=== PATIENT | female | born 1985 | race Caucasian/White ===

== ENCOUNTER 2018-09-01 19:22 | Outpatient (CLI) | payer OTHER ==
[~2018-09-01] VITALS: Ht 162.6 cm; Wt 106.4 kg
[~2018-09-01 19:22] MED LIST: FERR-31 PO; PRENAT PO
[2018-09-01 19:27] VITALS: Ht 162.6 cm; Wt 106.4 kg
--- NOTE | 2018-09-01 21:04 | PN ---
Triage Information Date/Time Reason for visit: Uterine contractions Weeks of Gestation Patient is a 33-year-old 5 para 2 at 35 weeks of gestation with estimated date of delivery October 15, 2018 She presents with uterine contractions and rule out labor Patient reports positive movement, denies any vaginal bleeding or leaking fluid /Para 5 para 2 Diabetes: gestational (Gestational diabetes diet-controlled) Diabetes management: diet controlled (GDM A1) Hypertention: none Objective Heart Rate: 140's Heart Rate Comments heart rate tracing category 1 Contractions: 6-10 Minutes Apart Exam Fingertip/posterior/high per nurse Results/Medications Results 24 hrs Laboratory Tests Test 09/01/18 19:41 Bedside Glucose 84 Disposition: Discharge Assessment/Plan kick count instructions were given Labor precautions were given Patient was counseled to increase p.o. hydration Patient instructed to follow-up with her own [employer] [facility] in 1-2 days NATE GARBER MD Sep 01, 2018 21:04
--- NOTE | 2018-09-01 21:09 | TRIAGE ---
OB Triage Datetime Report Generated by CPN: 09/01/2018 21:08 Datetime: 09/01/2018 20:32 Labor Evaluation Frequency: Irregular Monitor Mode: External Duration (sec)2399: 50-90 Quality: Mild Resting Tone [place]: Relaxed Heart Rate FHR Baseline Rate: 125 Monitor Mode: External US Variability: Moderate 6-25 bpm Accelerations: 15X15 Decelerations: None Category: Category I Datetime: 09/01/2018 20:19 Vaginal Exam Dilatation (cms): 0.5 Effacement (%): 50 Station: -3 Exam By: JOVANI RN Membrane Status: Intact Cervix, Consistency: Moderate Datetime: 09/01/2018 20:08 Stage of : OB Triage Datetime: 09/01/2018 20:05 Labor Evaluation Frequency: Irregular Monitor Mode: External Duration (sec)2399: 50-70 Quality: Mild Resting Tone [place]: Relaxed Heart Rate FHR Baseline Rate: 130 Variability: Moderate 6-25 bpm Accelerations: 15X15 Decelerations: None Category: Category I Comments: periods of monitor loss of contact d/t maternal movement, position, _ BMI Pain Assessment Pain Scale: 8 Pain Presence: Intermittent Pain Type: Contraction; Pressure Pain Location: Abdomen; Perineum Pain Relief Measures: Comfort Measures Pain Assessment Comments: pt states contractions feel intense when they come but they are tolerable and it is unbearable. Datetime: 09/01/2018 19:41 Bedside Blood Glucose: 84 Datetime: 09/01/2018 19:38 Assessment Type: Triage Maternal Assessment Level of Consciousness: Fully Conscious DTR's/Clonus: DTRs 2+; No Clonus Headache: Denies Blurred Vision: No Respiratory Effort: Unlabored; Regular Rhythm; Equal Expansion Breath Sounds, Left: Clear and Equal Breath Sounds, Right: Clear and Equal Nausea/Vomiting: Denies RUQ Epigastric Pain: Denies Lower Extremities Edema: None Degree: None Upper Extremities Edema: None Degree: None Facial Edema: None Temperature Route: Oral Fall Risk Assessment History of Falling: (0) No Secondary Diagnosis: (0) No Ambulatory Aid: (0) Bedrest/Nurse Assist IV Therapy: (0) No Gait: (0) Normal/Bedrest/Immobile Mental Status: (0) Oriented to Own Ability Fall Score: 0 Fall Risk Score Definition: No Risk: No action required Pain Assessment Pain Scale: 8 Pain Presence: Intermittent Pain Type: Contraction; Pressure Pain Location: Abdomen; Perineum Pain Relief Measures: Comfort Measures Datetime: 09/01/2018 19:36 Monitor Mode: External US Comments: monitor applied, FHT audible around 125bpm Datetime: 09/01/2018 19:34 Monitor Mode: External Datetime: 09/01/2018 19:28 Time of Arrival: 09/01/2018 19:17 EGA: 35.0 Arrived By: Wheelchair Arrived From: Home Chief Complaint: UC's with vag pressure Movement: Present Contractions: Irregular (Annotations: Data stored by CPN on behalf of user) Time Contractions Began: 08/31/2018 21:00 Rupture of Membranes: Denies Vaginal Bleeding: None Vaginal Discharge: Denies Recent Sexual Intercouse: Denies Abdominal Trauma: Not Applicable Patient Complaints: Contractions Time Provider Notified: 09/01/2018 20:08 Provider Notified: Initial Plan: VS, EFM (Annotations: Data stored by CPN on behalf of user) Datetime: 09/01/2018 19:23 Stage of : OB Triage
== END 2018-09-01 20:45 | disposition home or self-care (01) ==
LOC: OBT 19:22 → L-D 19:23 → OBT 20:45
PROVIDERS: ATTEND Specialist
DX: O62.9 Abnormality of forces of labor, unspecified (principal); O24.419 Gestational diabetes mellitus in pregnancy, unspecified control; Z3A.35 35 weeks gestation of pregnancy
CPT/HCPCS: 82962; Z7500; G0463

== ENCOUNTER 2018-10-12 01:11 | Inpatient (IN) | payer OTHER ==
[~2018-10-12] VITALS: Ht 162.6 cm; Wt 107.5 kg
[2018-10-12 01:34] VITALS: Ht 162.6 cm; Wt 107.5 kg
[2018-10-12] MEDS: LACTATED RINGER'S 1,000 ML IV SCH ×4 (01:35→11:23)
[2018-10-12] MEDS ORDERED: CARBOPROST 250 MCG INJ IM PRN ×2 (02:00→15:30)
[2018-10-12] MEDS ORDERED: MISOPROSTOL 200 MCG TAB PR PRN ×2 (02:00→15:30)
[2018-10-12] MEDS ORDERED: METHYLERGONOVINE 0.2 MG INJ IM PRN (02:00)
[2018-10-12] MEDS ORDERED: LIDOCAINE 1% (MPF) 30 ML INJ INJ PRN (02:00)
[2018-10-12] MEDS ORDERED: OXYTOCIN 30 UNITS/LR 500 ML IV PRN ×2 (02:00→15:30)
[2018-10-12] MEDS ORDERED: BUTORPHANOL 2 MG INJ IV PRN (02:00)
[2018-10-12] MEDS ORDERED: OXYTOCIN 30 UNITS/LR 500 ML IV SCH ×2 (02:00)
--- NOTE | 2018-10-12 03:35 | PREAC ---
Date/Time of Note Date/Time of Note DATE: 10/12/18 TIME: 03:33 Anesthesia Eval and Record Evaluation Time Pre-Procedure Interview DATE: 10/12/18 TIME: 03:33 Age 33 Sex female NPO: 8 hrs Preoperative diagnosis labor pain Planned procedure epidural Past Medical History Past Medical History: Includes Endo: Diabetes Surgery & Anesthesia Issues No known issue Meds Anticoagulation: No Beta Gayathri within 24 hr: No Reason Beta Gayathri not given: Pt. not on B-Gayathri Reported Medications Multivit/Min/Fol Ac/Iron/Pren* ( S*) 1 Tab Tab, 1 TAB PO DAILY, TAB 12/13/15 Ferrous Sulfate (Iron Supplement) 1 Tab Tablet, 1 TAB PO DAILY, TAB 12/13/15 Current Medications Lactated Ringer's 1,000 ml @ 125 mls/hr Q8H IV Last administered on 10/12/18at 03:24; Admin Dose 125 MLS/HR; Start 10/12/18 at 01:35 Butorphanol Tartrate (Stadol) 2 mg Q2H PRN IV .PAIN; Start 10/12/18 at 02:00 Lidocaine (Xylocaine 1% (Mpf)) 30 ml ONCE PRN INJ .EPISIOTOMY; Start 10/12/18 at 02:00 Oxytocin/Lactated Ringer's 500 ml @ 500 mls/hr ONCE POST IV ; Start 10/12/18 at 02:00 Oxytocin/Lactated Ringer's 500 ml @ 125 mls/hr POST IV ; Start 10/12/18 at 02:00 Oxytocin/Lactated Ringer's 500 ml @ 0 mls/hr ONCE PRN IV .VAGINAL BLEEDING; Start 10/12/18 at 02:00 Methylergonovine Maleate (Methergine) 0.2 mg ONCE PRN IM .VAGINAL BLEEDING; Start 10/12/18 at 02:00 Carboprost Tromethamine (Hemabate) 250 mcg ONCE PRN IM .VAGINAL BLEEDING; Start 10/12/18 at 02:00 Misoprostol (Cytotec) 1,000 mcg ONCE PRN [place] .VAGINAL BLEEDING; Start 10/12/18 at 02:00 Meds reviewed: Yes Allergies Coded Allergies: No Known Allergy (Unverified , 09/01/18) Allergies Reviewed: Yes Labs/Studies Labs Reviewed: Reviewed by anesthesiologist Result Diagram: 10/12/18 0200 Laboratory Tests 10/12/18 02:00 Blood Bank Test 10/12/18 02:00 Blood Type A POSITIVE Rh Immune Globulin Candidate NO test: Positive Studies: ECG (n/a), CXR (n/a) Pre-procedure Exam Airway: Adequate mouth opening Mallampati: Mallampati I Teeth: Normal Lung: Normal Heart: Normal ASA Physical Status ASA physical status: 2 Emergency: None Planned Anesthetic Neuraxial: Epidural Pre-operative Attestations Prior to commencing anesthesia and surgery, the patient was re-evaluated, there was verification of: *The patient's identity *The results of appropriate recent lab work and preoperative vital signs *The above evaluation not changing prior to induction *Anesthetic plan, risk benefits, alternative and complications discussed with patient/family; questions answered; patient/family understands, accepts and wishes to proceed. RON HOLT MD Oct 12, 2018 03:35
[2018-10-12] MEDS ORDERED: NALOXONE (0.4 MG/ML) INJ IV PRN (04:00)
[2018-10-12] MEDS ORDERED: ONDANSETRON 4 MG INJ IV PRN ×2 (04:00→15:30)
[2018-10-12] MEDS ORDERED: FENTAnyl 2MCG/ML-ROPIV 0.2% 100 ML BAG EPI SCH (04:00)
--- NOTE | 2018-10-12 08:08 | PAC ---
Date/Time of Note Date/Time of Note DATE: 10/12/18 TIME: 08:07 Post-Anesthesia Notes Post-Anesthesia Note Last documented vital signs BP 115/61 Sat 98%, RR 18, HR86 Temp 98 Activity: WNL Respiratory function: WNL Cardiovascular function: WNL Mental status: Baseline Pain reasonably controlled: Yes Hydration appropriate: Yes Nausea/Vomiting absent: No RON HOLT MD Oct 12, 2018 08:08
--- NOTE | 2018-10-12 14:01 | HP ---
Date/Time of Note Date/Time of Note DATE: 10/12/18 TIME: 13:58 OB - History Hx of Present Free Text/Dictation 33 YO with IUP at 39.4 weeks with EDC 10/15/2018 who reported to L&D in active labor. had some variable decelerations. AROM done and IUPC and FSE placed. will amnio-infuse. she is 8 cm. EFW 8 Lb. pelvic is adequate Care: Good Care Ultrasounds: Normal mid trimester US Obstetrical Complications: None, Gestational Diabetes Medical Complications: None Past Family/Social History * Past Medical, Surgical, Family and Obstetric Histories reviewed from chart. OB Admission Exam Physical Exam HEENT: WNL Heart: Rhythm Normal Lungs: Clear, Equal Abdomen: WNL Extremities: Normal Reflexes: Normal Cervical Dilatation: 8cm Last 72 hourBlood Glucose Bedside Glucose - 72 Hours Test 10/12/18 05:55 10/12/18 11:32 Bedside Glucose 86 mg/dL (70-220) 80 mg/dL (70-220) Last 72 hours Lab Results CBC & BMP 10/12/18 02:00 OB Assessment/Plan Reason for admission: active labor Plan: Expectant Management Induction Method: other (amnio-infuse) MARILEE WARD MD Oct 12, 2018 14:01
[2018-10-12] MEDS: LACTATED RINGER'S 1,000 ML IV* SCH ×2 (15:12→23:12)
--- NOTE | 2018-10-12 15:12 | LDN ---
Date/Time of Note Date/Time of Note DATE: 10/12/18 TIME: 15:10 Delivery Summary 33 YO with IUP at 39.4 weeks with EDC 10/15/2018 who reported to L&D in active labor. had deeper and longer variable decelerations with pushing. s/p of viable male infant over intact perineum. placenta delivered intact and spontaneously. tight nuchal cord x 1 was clamped and cut on perineum. Placenta Delivered: Spontaneously Meconium: Light Episiotomy: No Perineal laceration: 0 Anesthesia type: Epidural Estimated blood loss: 300 Sponge & Needle done & correct: Yes All needle counts correct: Yes Any foreign bodies felt in the: No Delivery Information Sex Infant Sex: male Apgars 1 Minute: 8 5 Minute: 9 Suctioning Nose & mouth suctioned at [place]: No Delee suction performed: No Umbilical Cord Umbilical cord with: 3 Vessels Cord presentations: nuchal cord Nuchal cord present X: 1 Cord Blood was obtained: Yes Mother & Baby Disposition Disposition Mom & Baby to Maternity; Good: Yes MARILEE WARD MD Oct 12, 2018 15:12
[2018-10-12] MEDS ORDERED: HYDROCODONE/APAP (5/325) TAB PO PRN (15:30)
[2018-10-12] MEDS ORDERED: SENNA/DOCUSATE NA (8.6MG/50MG) TAB PO PRN (15:30)
[2018-10-12] MEDS ORDERED: MAGNESIUM HYDROXIDE 30ML CUP PO PRN (15:30)
[2018-10-12] MEDS ORDERED: BENZOCAINE 20% 56 ML SPRAY TOP PRN (15:30)
[2018-10-12] MEDS ORDERED: ONDANSETRON 4 MG TAB PO PRN (15:30)
[2018-10-12] MEDS ORDERED: NA PHOSPHATE/BIPHOS 133 ML ENEMA PR PRN (15:30)
[2018-10-12] MEDS ORDERED: DIPHENHYDRAMINE 50 MG INJ IV PRN (15:30)
[2018-10-12] MEDS ORDERED: DIBUCAINE 1% 30 GM OINT TOP PRN (15:30)
[2018-10-12] MEDS ORDERED: DIPHENHYDRAMINE 25 MG CAP PO PRN (15:30)
[2018-10-12] MEDS ORDERED: WITCH HAZEL/GLYCERIN PAD PR PRN (15:30)
[2018-10-12] MEDS ORDERED: LANOLIN HPA 1 PKT TOP PRN (15:30)
[2018-10-12 17:15] VITALS: BP 134/79; PULSE 91; RESP 17
[2018-10-12] MEDS: IBUPROFEN 600 MG TAB PO SCH ×2 (18:32→23:22)
[2018-10-12 20:30] VITALS: BP 138/75; PULSE 98; RESP 20
[2018-10-12] MEDS: SENNA/DOCUSATE NA (8.6MG/50MG) TAB PO SCH (21:31)
[2018-10-13 03:35] VITALS: BP 110/55; PULSE 95; RESP 20
[2018-10-13] MEDS: IBUPROFEN 600 MG TAB PO SCH ×4 (05:10→23:46)
[2018-10-13 08:00] VITALS: BP 122/68; PULSE 99; RESP 20
[2018-10-13] MEDS: SENNA/DOCUSATE NA (8.6MG/50MG) TAB PO SCH ×2 (09:17→21:29)
[2018-10-13 12:20] VITALS: BP 131/75; PULSE 87; RESP 20
[2018-10-13 16:15] VITALS: BP 113/72; PULSE 89; RESP 20
--- NOTE | 2018-10-13 19:50 | DS ---
Date/Time of Note Date/Time of Note DATE: 10/13/18 TIME: 19:49 Obstetrical Discharge Record Final Diagnosis Final Diagnosis: Term delivered Vaginal Delivery Obstetrical Delivery: Spontaneous Complications Augmentation: Yes Induction: Yes Rupture of Membranes: No Condition on Discharge Physical Assessment Voiding: Yes Bowel Movement: Yes Breast: Soft, non-tender, Filling Fundus: Firm Abdomen and Incision: soft, not tender Calf Tenderness: No Patient Condition: Good MARILEE WARD MD Oct 13, 2018 19:50
[2018-10-13 20:00] VITALS: BP 119/79; PULSE 93; RESP 18
[2018-10-13] MEDS: HYDROCODONE/APAP (5/325) TAB PO PRN (23:20)
[2018-10-14 04:00] VITALS: BP 103/73; PULSE 84; RESP 18
[2018-10-14] MEDS: IBUPROFEN 600 MG TAB PO SCH ×3 (05:31→17:17)
[2018-10-14] MEDS: HYDROCODONE/APAP (5/325) TAB PO PRN (05:31)
[2018-10-14 08:40] VITALS: BP 119/78; PULSE 83; RESP 17
[2018-10-14] MEDS ORDERED: VARICELLA VACCINE LIVE/PF 1,350 UNIT/0.5 ML ML SC* ONE (09:00)
[2018-10-14] MEDS ORDERED: MEASLES,MUMPS,RUBELLA VACCINE INJ SC* ONE (09:00)
[2018-10-14] MEDS ORDERED: DIPHTH/TET/ACEL PERTUSS (ADULT) 0.5 ML VIAL IM* ONE (09:00)
[2018-10-14] MEDS: SENNA/DOCUSATE NA (8.6MG/50MG) TAB PO SCH ×2 (09:48→12:17)
[2018-10-14 16:52] VITALS: BP 118/81; PULSE 108; RESP 17
== END 2018-10-14 18:40 | disposition home or self-care (01) | DRG 807 ==
LOC: OBT 01:11 → L-D 01:11 → OBT 01:40 → L-D 02:29 → PP1 17:08
PROVIDERS: ADMIT Specialist; ATTEND Specialist
PROC: 10E0XZZ Delivery of Products of Conception, External Approach (ICD-10-PCS; principal; 2018-10-12)
PROC: 10907ZC Drainage of Amniotic Fluid, Therapeutic from Products of Conception, Via Natural or Artificial Opening (ICD-10-PCS; 2018-10-12)
PROC: 10H07YZ Insertion of Other Device into Products of Conception, Via Natural or Artificial Opening (ICD-10-PCS; 2018-10-12)
PROC: 4A1H7CZ Monitoring of Products of Conception, Cardiac Rate, Via Natural or Artificial Opening (ICD-10-PCS; 2018-10-12)
DX: O76 Abnormality in fetal heart rate and rhythm complicating labor and delivery (principal); Z37.0 Single live birth; O24.429 Gestational diabetes mellitus in childbirth, unspecified control; O69.1XX0 Labor and delivery complicated by cord around neck, with compression, not applicable or unspecified; Z3A.39 39 weeks gestation of pregnancy; Z23 Encounter for immunization
CPT/HCPCS: 36415; 36600; 62319; 76815; 82803; 82962; 85025; 85610; 85730; 86592; 86850; 86900; 86901; 87340; 90716; 99464; G0463; J2590; J3010; J7120